=== PATIENT | female | born 1970 | race Caucasian/White ===

== ENCOUNTER → 2023-11-06 08:16 | Outpatient (REF) | payer OTHER, BC, SELFPAY | LOC: WDC 08:16 | PROVIDERS: ATTENDING PHYSICIAN Obstetrics & Gynecology; FAMILY PHYSICIAN Internal Medicine | DX: Z12.31 Encounter for screening mammogram for malignant neoplasm of breast (principal) | CPT/HCPCS: 77063; 77067 ==

== ENCOUNTER → 2024-11-06 08:14 | Outpatient (REF) | payer BC, SELFPAY | LOC: WDC 08:14 | PROVIDERS: ATTENDING PHYSICIAN Obstetrics & Gynecology Gynecology | DX: Z12.31 Encounter for screening mammogram for malignant neoplasm of breast (principal) | CPT/HCPCS: 77063; 77067 ==